=== PATIENT | female | born 2000 | race American Indian/Alaskan Native ===

== ENCOUNTER 2018-01-15 08:36 | Emergency (ER) | payer MEDICAID ==
[~2018-01-15] VITALS: Ht 167.6 cm; Wt 65.9 kg
[~2018-01-15 08:36] MED LIST: NO HOME MEDS
[2018-01-15 08:51] VITALS: BP 134/70
[2018-01-15] MEDS ORDERED: PENI500T2 PO (09:00)
[2018-01-15] MEDS ORDERED: IBUP-1984 PO (09:00)
== END 2018-01-15 09:10 | disposition home or self-care (01) ==
LOC: ER 08:37
DX: J02.0 Streptococcal pharyngitis (principal); Z79.899 Other long term (current) drug therapy
CPT/HCPCS: 99283

== ENCOUNTER 2018-01-15 22:12 | Emergency (ER) | payer MEDICAID ==
[~2018-01-15] VITALS: Ht 167.6 cm; Wt 68.0 kg
[~2018-01-15 22:12] MED LIST changes: +IBUP-1984 PO; +PENI500T2 PO
[2018-01-16] VITALS: BP 120/63
[2018-01-16] MEDS ORDERED: dexamethasone sod phosphate 10mg/ml inj IM STA (00:18)
[2018-01-16] MEDS ORDERED: ibuprofen 100 MG/5 ML oral susp PO ONE (00:20)
[2018-01-16 00:51] LABS: MONOTEST NEGATIVE (Neg)
== END 2018-01-16 01:20 | disposition home or self-care (01) ==
LOC: ER 22:12
DX: J02.9 Acute pharyngitis, unspecified (principal); Z79.899 Other long term (current) drug therapy
CPT/HCPCS: 36415; 86308; 87081; 87880; 96372; 99284; J1100